=== PATIENT | female | born 1980 | race Caucasian/White ===

== ENCOUNTER 2020-05-11 19:15 | Emergency (ER) | payer OTHER ==
[~2020-05-11] VITALS: Ht 170.2 cm; Wt 136.1 kg
[2020-05-11] MEDS ORDERED: LIDOCAINE-MPF 1%, 5ML ONE (20:18)
[2020-05-11] MEDS ORDERED: LIDOCAINE-MPF 1%, 5ML INFIL ONE (20:30)
[2020-05-11] MEDS ORDERED: AMOXICILLIN/CLAV 875-125MG TABLET PO ONE (20:30)
[2020-05-11] MEDS ORDERED: LIDOCAINE 1%, 10ML INFIL ONE (20:30)
[2020-05-11] MEDS ORDERED: AMOXICILLIN/CLAV 875-125MG TABLET ONE (20:38)
[2020-05-11 20:48] VITALS: BP 111/72
--- NOTE | 2020-05-11 20:48 | NUR ---
PATIENT VERBALIZED UNDERSTANDING. VERBALIZED PRESCRIPTION AND FOLLOW UP AT HOME. PATIENT AMBULATORY TO DISCHARGE WITHOUT COMPLICATIONS WITH BELONGINGS.
== END 2020-05-11 20:51 | disposition home or self-care (01) ==
LOC: ED 20:45
DX: K61.1 Rectal abscess (principal); R00.0 Tachycardia, unspecified
CPT/HCPCS: 46050; 99284

== ENCOUNTER 2020-07-24 18:22 | Emergency (ER) | payer MEDICAID, OTHER ==
[~2020-07-24] VITALS: Ht 170.2 cm; Wt 134.8 kg
[2020-07-24 18:59] LABS: BASOPHILS % (AUTO) 0 % (0-1); EOSINOPHILS % (AUTO) 0 % (1-7); LYMPHOCYTES % (AUTO) 32 % (22-44); MEAN CORPUSCULAR HEMOGLOBIN 30.7 pg (27.0-34.8); MEAN CORPUSCULAR HGB CONC 33.8 g/dL (32.4-35.8); MEAN PLATELET VOLUME 8.8 fL (7.4-10.4); MONOCYTES % (AUTO) 12 % (2-9); NEUTROPHILS % (AUTO) 55 % (42-75); PLATELET COUNT 175 x10^3/uL (130-400); RED BLOOD COUNT 4.71 x10^6/uL (3.82-5.3); RED CELL DISTRIBUTION WIDTH 13.8 % (9.6-15.2)
[2020-07-24 19:11] LABS: ANION GAP 7 mmol/L (5-15); CALCIUM 8.7 mg/dL (8.5-10.1); CHLORIDE 107 mmol/L (98-107); CREATININE 0.92 mg/dL (0.55-1.02)
[2020-07-24 19:12] LABS: ALBUMIN 3.7 g/dL (3.4-5.0)
--- NOTE | 2020-07-24 22:40 | NUR ---
PT TO ROOM, CALM AND SAYS SHE JUST DOESN'T FEEL GOOD. PT SAYS SHE HAS HEAD ACHE AND WEAKNESS. PT PLACED ON O2 SAT PROBE, AND BLANKETS PROVIDED. AWAITING MD TO GO TO ROOM.
--- NOTE | 2020-07-24 22:56 | NUR ---
MD TO BEDSIDE AND ORDERS RECEIVED.
[2020-07-24] MEDS ORDERED: CLINDAMYCIN 300 MG CAPSULE PO ONE (23:00)
[2020-07-24] MEDS ORDERED: LIDOCAINE 1%, 10ML INFIL ONE (23:00)
[2020-07-24] MEDS ORDERED: ONDANSETRON 2MG/ML, 2ML IVPush ONE (23:00)
[2020-07-24] MEDS ORDERED: SODIUM CHLORIDE FLUSH 10ML SYR IVF ONE (23:00)
[2020-07-24] MEDS ORDERED: ACETAMINOPHEN 500 MG TABLET PO ONE (23:00)
[2020-07-24] MEDS ORDERED: SODIUM CHLORIDE 0.9% 1,000ML IVBOLUS ONE (23:00)
[2020-07-24] MEDS ORDERED: ACETAMINOPHEN 500 MG TABLET ONE (23:03)
[2020-07-24] MEDS ORDERED: CLINDAMYCIN 300 MG CAPSULE ONE (23:03)
[2020-07-24] MEDS ORDERED: LIDOCAINE-MPF 1%, 5ML ONE (23:03)
[2020-07-24] MEDS ORDERED: ONDANSETRON 2MG/ML, 2ML ONE (23:03)
--- NOTE | 2020-07-24 23:19 | NUR ---
PIV STARTED TO RIGHT HAND X1 ATTEMPT, 20G. PT TOLERATED WELL, IVF HUNG TO RUN OVER AN HOUR, LIDOCAINE AND ABCESS TRAY SET UP FOR MD. PT MEDICATED PER MD ORDERS, SEE EMAR. PT CALM AND PROVIDED WARM BLANKETS AND IN NO ACUTE DISTRESS AT THIS TIME. SIDERAILS UP X2 AND CALL LIGHT WITHIN REACH.
--- NOTE | 2020-07-25 01:25 | NUR ---
F/U AND D/C INSTRUCTIONS GIVEN TO PT WITH PRESCRIPTIONS AND SHE V/U. PT AMBULATED TO DISCHARGE.
[2020-07-25 01:26] VITALS: BP 110/68
== END 2020-07-25 01:28 | disposition home or self-care (01) ==
LOC: ED 21:00
DX: U07.1 COVID-19 (principal); J06.9 Acute upper respiratory infection, unspecified; R50.9 Fever, unspecified; L03.311 Cellulitis of abdominal wall; L02.211 Cutaneous abscess of abdominal wall
CPT/HCPCS: 10060; 36415; 71045; 80048; 82040; 85025; 99284; U0003; U0005

== ENCOUNTER 2020-08-09 18:49 | Emergency (ER) | payer OTHER, MEDICAID ==
[~2020-08-09] VITALS: Ht 170.2 cm; Wt 134.7 kg
[~2020-08-09 18:49] MED LIST: ASCO500T9 PO; CEFD300C37 PO; CHOL500045 PO; CLIN300C3 PO; DEXA4TAB66 PO; DOXY100T23 PO; ZINC220C8 PO
--- NOTE | 2020-08-09 20:25 | NUR ---
PT STATES SHE HAS HAD COVID FOR THE LAST 2 WEEKS, LAST TIME SHE WAS HERE SHE STATES THAT SHE HAD BILATERAL PNEUMONIA, PT HERE NOW BECAUSE SHE HAS SOB AND CHEST PAIN AND IS "FREAKING OUT" THAT SHE IS NOT GETTING BETTER
[2020-08-09 21:46] LABS: BASOPHILS % (AUTO) 0 % (0-1); EOSINOPHILS % (AUTO) 0 % (1-7); LYMPHOCYTES % (AUTO) 6 % (22-44); MEAN CORPUSCULAR HGB CONC 33.1 g/dL (32.4-35.8); MEAN PLATELET VOLUME 8.4 fL (7.4-10.4); MONOCYTES % (AUTO) 2 % (2-9); NEUTROPHILS % (AUTO) 91 % (42-75); PLATELET COUNT 405 x10^3/uL (130-400); RED BLOOD COUNT 4.45 x10^6/uL (3.82-5.3); RED CELL DISTRIBUTION WIDTH 13.8 % (9.6-15.2)
--- NOTE | 2020-08-09 21:49 | NUR ---
PT LAYING IN BED, A/OX4, ALL NEEDS IN REACH, CALL LIGHT IN REACH, NAD, SON AT [facility]
[2020-08-09 21:58] LABS: ALANINE AMINOTRANSFERASE 43 U/L (12-78); ALBUMIN 3.1 g/dL (3.4-5.0); ANION GAP 8 mmol/L (5-15); CALCIUM 8.8 mg/dL (8.5-10.1); CHLORIDE 104 mmol/L (98-107)
[2020-08-09 22:03] LABS: ALKALINE PHOSPHATASE 112 U/L (45-117); BILIRUBIN,TOTAL 0.4 mg/dL (0.2-1.0); CREATININE 0.86 mg/dL (0.55-1.02); TOTAL PROTEIN 7.1 g/dL (6.4-8.2); TROPONIN I < 0.015 ng/mL (0.000-0.045)
[2020-08-09] MEDS ORDERED: OMNIPAQUE 350 MG/ML, 75ML BOTTLE ONE (22:27)
[2020-08-09] MEDS ORDERED: RIVAROXABAN 15 MG TABLET PO ONE (23:30)
[2020-08-09] MEDS ORDERED: RIVAROXABAN 10 MG TABLET ONE (23:38)
[2020-08-09 23:54] VITALS: BP 134/82
== END 2020-08-10 00:09 | disposition home or self-care (01) ==
LOC: ED 20:41
DX: U07.1 COVID-19 (principal); I26.99 Other pulmonary embolism without acute cor pulmonale; R06.00 Dyspnea, unspecified; J45.909 Unspecified asthma, uncomplicated
CPT/HCPCS: 36415; 71275; 80053; 83880; 84484; 84703; 85025; 93005; 99285; Q9967

== ENCOUNTER 2020-08-16 03:18 | Emergency (ER) | payer MEDICAID, OTHER ==
[~2020-08-16] VITALS: Ht 170.2 cm; Wt 134.9 kg
--- NOTE | 2020-08-16 03:38 | NUR ---
PT PRESENTS TO ER FOR SHORTNESS OF BREATH, CHEST PAIN "FEELS LIKE THERE IS AN ELEPHANT SITTING ON MY CHEST", PT STATES IT FEELS LIKE SHE IS STRUGGLING TO BREATHE, PT STATES EVEN WALKING SHORT DISTANCES SHE GETS EXHAUSTED, PT HAD COVID AND WAS DIAGNOSED WITH IT FOR THE LAST 3 WEEKS, PT SPEAKING IN FULL SENTENCES, PT STATES SHE ALSO HAS NAUSEA WITH NO VOMITTING
[2020-08-16 04:22] LABS: BASOPHILS % (AUTO) 1 % (0-1); EOSINOPHILS % (AUTO) 1 % (1-7); LYMPHOCYTES % (AUTO) 22 % (22-44); MEAN CORPUSCULAR HEMOGLOBIN 30.3 pg (27.0-34.8); MEAN CORPUSCULAR HGB CONC 33.4 g/dL (32.4-35.8); MEAN PLATELET VOLUME 8.7 fL (7.4-10.4); MONOCYTES % (AUTO) 8 % (2-9); NEUTROPHILS % (AUTO) 69 % (42-75); PLATELET COUNT 257 x10^3/uL (130-400); RED CELL DISTRIBUTION WIDTH 14.6 % (9.6-15.2)
[2020-08-16 04:44] LABS: ANION GAP 4 mmol/L (5-15); CALCIUM 8.3 mg/dL (8.5-10.1); CHLORIDE 107 mmol/L (98-107); CREATININE 0.79 mg/dL (0.55-1.02)
[2020-08-16 04:48] LABS: TROPONIN I < 0.015 ng/mL (0.000-0.045)
--- NOTE | 2020-08-16 06:06 | NUR ---
MD DISCUSSED POC WITH PT, ALL DIAGNOSTICS NEGATIVE, PT AGREED TO POC, PT TO BE DISCHARGED, NAD
[2020-08-16 06:07] VITALS: BP 120/81
== END 2020-08-16 06:09 | disposition home or self-care (01) ==
LOC: ED 04:00
DX: R07.89 Other chest pain (principal); R09.1 Pleurisy; R94.31 Abnormal electrocardiogram [ECG] [EKG]; J45.909 Unspecified asthma, uncomplicated; Z86.711 Personal history of pulmonary embolism
CPT/HCPCS: 36415; 71045; 80048; 82040; 83880; 84484; 85025; 93005; 99285